=== PATIENT | male | born 1950 | race Caucasian/White ===

== ENCOUNTER 2019-03-05 07:20 | Outpatient (CLI) | payer MEDICARE, BC ==
[2019-03-05 11:47] LABS: Mean Corpuscular HGB CONC 33.5 g/dL (32.0-36.0); Mean Corpuscular Hemoglobin 29.2 pg (27.0-31.0); Mean Corpuscular Volume 87.2 fL (78.0-98.0); Mean Platelet Volume 7.6 fL (7.4-10.4); Platelet Count 285 thou/uL (130-400); RBC Distribution Width 11.6 % (11.5-14.5); Red Blood Cell (RBC) Count 5.13 mill/uL (4.70-6.10); White Blood Cell (WBC) Count 8.1 thou/uL (4.8-10.8)
[2019-03-05 11:53] LABS: INR-International Normal Ratio 0.9; PTT 29.4 SEC (22.9-36.1); Prothrombin Time 12.6 SEC (12.0-14.7)
[2019-03-05 12:03] LABS: Bilirubin Negative (Negative); Blood, Urine Negative (Negative); Clarity Clear (Clear); Glucose, Urine (Dipstick) Normal (Negative); Leukocyte Negative Leu/uL (Negative); Nitrite Negative (Negative); Protein, Urine (Dipstick) Negative (Neg-Trace); RBC/HPF 0-3 HPF (0-3); Squamous Epithelial None Seen HPF (0-3); Urobilinogen Normal mg/dL (Less than 2); WBC/HPF 0-3 HPF (0-3)
[2019-03-05 12:04] LABS: Anion Gap 12 mmol/L (10-20); BUN (Urea Nitrogen) 14 mg/dL (8.4-25.7); Calc. Creatinine Clearance 0 mL/min (70-130); Calcium 9.9 mg/dL (7.8-10.44); Carbon Dioxide 27 mmol/L (23-31); Chloride 105 mmol/L (98-107); Estimated GFR-MDRD 80; Glucose 90 mg/dL (83-110); Potassium 4.4 mmol/L (3.5-5.1); Sodium 140 mmol/L (136-145)
[2019-03-05 12:05] LABS: Bacteria/HPF 1+ HPF (None Seen)
--- NOTE | 2019-03-05 16:42 | EKG ---
Test Reason : Blood Pressure : / mmHG Vent. Rate : 060 BPM Atrial Rate : 060 BPM P-R Int : 000 ms QRS Dur : 160 ms QT Int : 488 ms P-R-T Axes : 000 -13 076 degrees QTc Int : 488 ms AV sequential or dual chamber electronic pacemaker When compared with ECG of 29-AUG-2010 04:12, Electronic ventricular pacemaker has replaced Sinus rhythm Confirmed by DR. Danielle JOSEPH ([id number]) on 03/05/2019 4:42:07 PM Referred By: DEION Confirmed By:DR. Danielle JOSEPH
== END 2019-03-05 07:21 | disposition home or self-care (01) ==
LOC: LABBT 07:20
PROVIDERS: ATTEND Urology
DX: Z01.818 Encounter for other preprocedural examination (principal); Z12.5 Encounter for screening for malignant neoplasm of prostate; I25.10 Atherosclerotic heart disease of native coronary artery without angina pectoris; R97.20 Elevated prostate specific antigen [PSA]; R35.0 Frequency of micturition; N40.1 Benign prostatic hyperplasia with lower urinary tract symptoms; I10 Essential (primary) hypertension; Z95.0 Presence of cardiac pacemaker
CPT/HCPCS: 80048; 81001; 85027; 85610; 85730; 87086; 93005; 93010

== ENCOUNTER 2019-03-17 05:56 | Day surgery (SDC) | payer MEDICARE, BC ==
[2019-03-05 10:34] VITALS: BMI 30.7
[2019-03-17] MEDS ORDERED: Sodium Chloride 0.9% 100 ML ONE (06:20)
[2019-03-17] MEDS ORDERED: cefTRIAXone\\ROCEPHIN 1 GM VIAL ONE (06:20)
[2019-03-17] MEDS ORDERED: Levofloxacin 500 mg/D5W 100 ml Premix Bag ONE (06:20)
[2019-03-17] MEDS ORDERED: Fentanyl 100 MCG/2 ML VIAL ONE (06:55)
[2019-03-17] MEDS ORDERED: Phenazopyridine HCl 97.5 MG TABLET ONE (08:15)
--- NOTE | 2019-03-17 08:55 | OP ---
DATE OF PROCEDURE: 03/17/2019 PREOPERATIVE DIAGNOSES: 1. A 69-year-old male with history of elevated PSA 4.69. 2. Benign prostatic hyperplasia. 3. Anxiety. POSTOPERATIVE DIAGNOSES: 1. A 69-year-old male with history of elevated PSA 4.69. 2. Benign prostatic hyperplasia. 3. Anxiety. PROCEDURES PERFORMED: Cystoscopy, transrectal ultrasound volume study, 12-core needle prostate biopsy. ANESTHESIA: TIVA. COMPLICATIONS: None apparent. SPECIMEN: A 12-core needle standard core biopsy. FINDINGS: 1. Bilobar hyperplasia of the prostate moderately obstruction. No median lobe. UOs about 2 to 3 mm proximal to the bladder neck with trabeculation consistent with chronic outlet obstruction. 2. Volume study, prostate 40.5 g with no obvious lesions appreciated. INDICATIONS FOR PROCEDURE AND HISTORY: Mr. 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 Due to severe anxiety regarding the procedure, he requested exam under anesthesia. Risks and complications of the procedure were reviewed including, but not limited to, bleeding, pain, infection , injury to adjacent organs, urosepsis, chronic pain. All questions answered to his satisfaction. He desired to proceed. Possibility of sepsis, intractable bleeding requiring secondary procedure was reviewed with him in detail. DESCRIPTION OF PROCEDURE: After an informed consent was signed, the patient was taken to the operating room, placed in supine position with the genital area prepped and draped. A flexible cystoscopy was performed, which demonstrated normal anterior urethra. Prostatic urethra demonstrated bilobar hyperplasia moderately obstruction. The left lobe appeared to be more prominent than right lobe of the prostate. There was some mild hypervascularity of the prostatic urethral mucosa. Bladder was entered, which demonstrated no evidence of bladder tumor, stones. There was evidence of trabeculation to views consistent with chronic outlet obstruction. The UOs are about 2 to 3 mm proximal to the bladder neck. At this time, we transitioned him to a lateral decubitus position. Pressure points were padded and protected. A transrectal ultrasound probe was placed per rectum, and a volume study was performed, which demonstrated urethral length of 4 cm, width of 5.2, height of 3.7, volume estimated to be 40.5 g. At this time, using a needle core biopsy through the probe, we obtained a 12 core standard prostate biopsy uneventfully. He tolerated the procedure well and transported to the recovery room in stable condition. The patient was discharged with Levaquin 500 mg one p.o. daily for three days. He will follow up with me next to review his pathology. Job ID: [id number] [id number]
[2019-03-17] MEDS ORDERED: PROPOFOL 200 MG/20 ML VIAL ONE (09:40)
== END 2019-03-17 08:15 | disposition home or self-care (01) ==
LOC: SDC 05:56
PROVIDERS: ATTEND Urology
PROC: 0VB03ZX Excision of Prostate, Percutaneous Approach, Diagnostic (ICD-10-PCS; principal; 2019-03-17)
DX: N40.1 Benign prostatic hyperplasia with lower urinary tract symptoms (principal); R35.0 Frequency of micturition; N13.8 Other obstructive and reflux uropathy; R39.11 Hesitancy of micturition; R39.12 Poor urinary stream; R97.20 Elevated prostate specific antigen [PSA]; I10 Essential (primary) hypertension; I25.10 Atherosclerotic heart disease of native coronary artery without angina pectoris; E03.9 Hypothyroidism, unspecified; I25.2 Old myocardial infarction; F41.9 Anxiety disorder, unspecified; Z79.82 Long term (current) use of aspirin; Z79.899 Other long term (current) drug therapy; Z88.8 Allergy status to other drugs, medicaments and biological substances; Z95.1 Presence of aortocoronary bypass graft; Z95.5 Presence of coronary angioplasty implant and graft; Z95.810 Presence of automatic (implantable) cardiac defibrillator
CPT/HCPCS: 55700; 88305; C1758; J0696; J1956; J2704; J3010; J3490

== ENCOUNTER 2021-03-09 13:12 | Outpatient (CLI) | payer MEDICARE, BC ==
[2021-03-09 14:27] LABS: Bilirubin Neg (Negative); Blood, Urine Negative (Negative); Clarity Clear (Clear); Glucose, Urine (Dipstick) Normal (Negative); Ketone, Urine Negative (Negative); Leukocyte Negative (Negative); Nitrite Negative (Negative); Protein, Urine (Dipstick) Negative (Neg-Trace); Specific Gravity, Urine 1.025 (1.002-1.036); Urobilinogen Normal mg/dL (Less than 2)
[2021-03-09 14:30] LABS: Mean Corpuscular HGB CONC 32.6 g/dL (32.0-36.0); Mean Corpuscular Hemoglobin 28.3 pg (27.0-33.0); Mean Corpuscular Volume 86.8 fl (81.2-95.1); Mean Platelet Volume 9.8 fl (7.4-10.4); Platelet Count 291 10x3/uL (150-450); RBC Distribution Width 12.7 % (11.5-14.5); Red Blood Cell (RBC) Count 4.94 10x6/uL (4.32-5.72); White Blood Cell (WBC) Count 10.1 10x3/uL (3.5-10.5)
[2021-03-09 14:46] LABS: PTT 26.3 sec (22.0-33.0); Prothrombin Time 10.8 sec (9.5-12.1)
[2021-03-09 14:50] LABS: Bacteria/HPF None Seen HPF (None Seen); RBC/HPF 0-3 HPF (0-3); Squamous Epithelial 0-3 HPF (0-3); WBC/HPF 0-3 HPF (0-3)
[2021-03-09 14:59] LABS: Anion Gap 13 mmol/L (10-20); BUN (Urea Nitrogen) 13 mg/dL (8.4-25.7); Calc. Creatinine Clearance 0 mL/min (70-130); Calcium 9.7 mg/dL (7.8-10.44); Carbon Dioxide 28 mmol/L (23-31); Chloride 105 mmol/L (98-107); Glucose 76 mg/dL (83-110); Potassium 4.7 mmol/L (3.5-5.1); Sodium 141 mmol/L (136-145)
[2021-03-10 17:07] LABS: SARS-CoV-2 PCR by NAA Not Detected (NotDetected)
== END 2021-03-09 13:13 | disposition home or self-care (01) ==
LOC: LABBT 13:12
PROVIDERS: ATTEND Urology
DX: Z01.818 Encounter for other preprocedural examination (principal); Z12.5 Encounter for screening for malignant neoplasm of prostate; I25.10 Atherosclerotic heart disease of native coronary artery without angina pectoris; I10 Essential (primary) hypertension; R97.20 Elevated prostate specific antigen [PSA]; N40.1 Benign prostatic hyperplasia with lower urinary tract symptoms; R35.0 Frequency of micturition; N13.8 Other obstructive and reflux uropathy; Z95.0 Presence of cardiac pacemaker; Z20.822 Contact with and (suspected) exposure to COVID-19
CPT/HCPCS: 71046; 80048; 81001; 85027; 85610; 85730; 87086; 93005; U0003; U0005; 93010

== ENCOUNTER 2021-04-04 09:47 | Outpatient (CLI) | payer BC, MEDICARE ==
[2021-04-04 11:04] LABS: Bilirubin Neg (Negative); Blood, Urine 10 (Negative); Clarity Clear (Clear); Glucose, Urine (Dipstick) Normal (Negative); Ketone, Urine Negative (Negative); Leukocyte Negative (Negative); Nitrite Negative (Negative); Protein, Urine (Dipstick) 15 mg/dl (Neg-Trace); Specific Gravity, Urine 1.025 (1.002-1.036); Urobilinogen Normal mg/dL (Less than 2)
[2021-04-04 11:16] LABS: Hemoglobin 12.3 g/dL (13.5-17.5); Mean Corpuscular Hemoglobin 27.8 pg (27.0-33.0); Mean Corpuscular Volume 86.9 fl (81.2-95.1); Mean Platelet Volume 10.4 fl (7.4-10.4); Platelet Count 314 10x3/uL (150-450); RBC Distribution Width 13.2 % (11.5-14.5); Red Blood Cell (RBC) Count 4.42 10x6/uL (4.32-5.72); White Blood Cell (WBC) Count 6.7 10x3/uL (3.5-10.5)
[2021-04-04 11:40] LABS: Bacteria/HPF None Seen HPF (None Seen); RBC/HPF 0-3 HPF (0-3); Squamous Epithelial 0-3 HPF (0-3); WBC/HPF 0-3 HPF (0-3)
[2021-04-04 11:43] LABS: PTT 27.3 sec (22.0-33.0); Prothrombin Time 10.7 sec (9.5-12.1)
[2021-04-04 12:07] LABS: Anion Gap 14 mmol/L (10-20); BUN (Urea Nitrogen) 14 mg/dL (8.4-25.7); Calc. Creatinine Clearance 0 mL/min (70-130); Calcium 9.1 mg/dL (7.8-10.44); Carbon Dioxide 25 mmol/L (23-31); Chloride 103 mmol/L (98-107); Glucose 91 mg/dL (83-110); Potassium 4.4 mmol/L (3.5-5.1); Sodium 138 mmol/L (136-145)
[2021-04-04 17:42] LABS: SARS-CoV-2 PCR by NAA Not Detected (NotDetected)
== END 2021-04-04 09:48 | disposition home or self-care (01) ==
LOC: LABBT 09:47
PROVIDERS: ATTEND Urology
DX: Z01.812 Encounter for preprocedural laboratory examination (principal); Z12.5 Encounter for screening for malignant neoplasm of prostate; N40.1 Benign prostatic hyperplasia with lower urinary tract symptoms; R35.0 Frequency of micturition; R97.20 Elevated prostate specific antigen [PSA]; I10 Essential (primary) hypertension; I25.10 Atherosclerotic heart disease of native coronary artery without angina pectoris; Z95.0 Presence of cardiac pacemaker; Z20.822 Contact with and (suspected) exposure to COVID-19
CPT/HCPCS: 80048; 81001; 85027; 85610; 85730; 87086; U0003; U0005

== ENCOUNTER 2021-04-09 06:23 | Day surgery (SDC) | payer MEDICARE, BC ==
[2021-04-05 12:33] VITALS: BMI 28.7
[2021-04-09] MEDS ORDERED: Midazolam HCl 2 mg/2 ml Vial ONE (06:38)
[2021-04-09] MEDS ORDERED: Fentanyl 100 MCG/2 ML VIAL ONE (06:38)
[2021-04-09] MEDS ORDERED: Levofloxacin 500 mg/D5W 100 ml Premix Bag ONE (06:55)
[2021-04-09] MEDS ORDERED: ePHEDrine 50 MG/ML VIAL ONE (07:20)
[2021-04-09] MEDS ORDERED: Ondansetron PF 4 MG/2 ML Vial ONE (07:20)
[2021-04-09] MEDS ORDERED: PROPOFOL 200 MG/20 ML VIAL ONE (07:20)
[2021-04-09] MEDS ORDERED: PHENYLEPHRINE-NS 100 MCG/ML 10 ML SYRINGE ONE (07:20)
[2021-04-09] MEDS ORDERED: Dexamethasone 20 MG/5 ML VIAL ONE (07:20)
[2021-04-09] MEDS ORDERED: Lidocaine 1% PF 5 ML VIAL ONE (07:20)
[2021-04-09] MEDS ORDERED: Sodium Chloride 0.9% 100 ML ONE (07:24)
[2021-04-09] MEDS ORDERED: cefTRIAXone\\ROCEPHIN 2 GM VIAL ONE (07:24)
[2021-04-09] MEDS ORDERED: Phenazopyridine HCl 100 MG TAB ONE ×2 (08:42→08:44)
== END 2021-04-09 09:53 | disposition home or self-care (01) ==
LOC: SDC 06:23
PROVIDERS: ATTEND Urology
PROC: 0VB03ZX Excision of Prostate, Percutaneous Approach, Diagnostic (ICD-10-PCS; principal; 2021-04-09)
PROC: 0T9B70Z Drainage of Bladder with Drainage Device, Via Natural or Artificial Opening (ICD-10-PCS; 2021-04-09)
DX: C61 Malignant neoplasm of prostate (principal); I25.10 Atherosclerotic heart disease of native coronary artery without angina pectoris; I10 Essential (primary) hypertension; N40.1 Benign prostatic hyperplasia with lower urinary tract symptoms; R35.0 Frequency of micturition; E03.9 Hypothyroidism, unspecified; I25.2 Old myocardial infarction; I25.5 Ischemic cardiomyopathy; Z79.82 Long term (current) use of aspirin; Z79.899 Other long term (current) drug therapy; Z88.8 Allergy status to other drugs, medicaments and biological substances; Z95.1 Presence of aortocoronary bypass graft; Z95.5 Presence of coronary angioplasty implant and graft; Z95.810 Presence of automatic (implantable) cardiac defibrillator
CPT/HCPCS: 88341; 88342; G0416; J0696; J1100; J1956; J2250; J2405; J2704; J3010; J3490

== ENCOUNTER 2023-07-30 06:36 | Day surgery (SDC) | payer MEDICARE ==
[2023-07-16 10:14] VITALS: BMI 28.7
[2023-07-30] MEDS ORDERED: cefTRIAXone (ROCEPHIN) 2 GM VIAL ONE (07:25)
[2023-07-30] MEDS ORDERED: LevoFLOXacin D5W 500 mg (100 mL) BAG ONE (07:25)
[2023-07-30] MEDS ORDERED: Sodium Chloride 0.9% 100 ML ONE (07:25)
[2023-07-30] MEDS ORDERED: Famotidine/PF 20 mg/2ml Vial ONE (07:33)
[2023-07-30] MEDS ORDERED: PHENYLEPHRINE-NS 100 MCG/ML 10 ML SYRINGE ONE (07:35)
[2023-07-30] MEDS ORDERED: fentaNYL 50 mcg/mL 1 mL Vial ONE (07:35)
[2023-07-30] MEDS ORDERED: Lidocaine 2% PF 5 ML VIAL ONE (07:35)
[2023-07-30] MEDS ORDERED: PROPOFOL 40 ML ONE (07:35)
[2023-07-30] MEDS ORDERED: Ondansetron PF 4 MG/2 ML Vial ONE (08:11)
[2023-07-30] MEDS ORDERED: Oxybutynin 5 MG TAB ONE (08:41)
[2023-07-30] MEDS ORDERED: Tamsulosin HCl 0.4 MG CAP ONE (08:42)
== END 2023-07-30 10:20 | disposition home or self-care (01) ==
LOC: SDC 06:36
PROVIDERS: ATTEND Urology
PROC: 0VB03ZX Excision of Prostate, Percutaneous Approach, Diagnostic (ICD-10-PCS; principal; 2023-07-30)
DX: C61 Malignant neoplasm of prostate (principal); N40.1 Benign prostatic hyperplasia with lower urinary tract symptoms; R35.0 Frequency of micturition; I10 Essential (primary) hypertension; E03.9 Hypothyroidism, unspecified; F41.9 Anxiety disorder, unspecified; E66.9 Obesity, unspecified; Z86.16 Personal history of COVID-19; I25.5 Ischemic cardiomyopathy; Z98.890 Other specified postprocedural states; Z68.29 Body mass index [BMI] 29.0-29.9, adult; Z88.8 Allergy status to other drugs, medicaments and biological substances; R97.20 Elevated prostate specific antigen [PSA]
CPT/HCPCS: 52000; 55700; J3010; C1747; G0416; J0696; J1956; J2001; J2405; J2704; J3490; S0028